=== PATIENT | male | born 1975 | race Hispanic/Latino ===

== ENCOUNTER 2019-09-05 02:28 | Emergency (ER) | payer OTHER ==
[2019-09-05] MEDS ORDERED: Lidocaine 1% w/Epinephrine 1:100K 20 ML VIAL ONE (03:00)
[2019-09-05] MEDS ORDERED: Acetaminophen 500 MG TAB ONE (03:00)
--- NOTE | 2019-09-05 07:35 | CT ---
PRELIMINARY REPORT/[facility]/EMERGENCY AFTER HOURS PROCEDURE: EXAM: CT Head Without Intravenous Contrast. CLINICAL HISTORY: NO PRIOR...ER 2...FALL FROM TOP BUNK, DENIES LOC, DIZZINESS, VISUAL CHANGES TECHNIQUE: Axial computed tomography images of the head/brain without intravenous contrast. COMPARISON: None provided. FINDINGS: BRAIN: No acute intraparenchymal hemorrhage. No mass lesion. No CT evidence for acute territorial inf arct. No midline shift or extra-axial collection. VENTRICLES: No hydrocephalus. ORBITS: The orbits are unremarkable. SINUSES AND MASTOIDS: The paranasal sinuses and mastoid air cells are clear. SOFT TISSUES: There is some mild soft tissue edema in the right supra orbital region. BONES: No acute skull fracture. IMPRESSION: There is some mild soft tissue edema in the right supra orbital region. No acute intracranial abnormality. ELECTRONICALLY SIGNED BY: Patricio Pederson MD Sep 05, 2019 3:04:01 AM PLE[employer] This report is intended for review by the ordering physician only, in accordance of law. If you recei ve this report in error, please call [facility] at [phone]. FINAL REPORT EMERGENCY AFTER HOURS CT BRAIN WITHOUT CONTRAST: FINDINGS/IMPRESSION: I agree with the findings and impression given in the preliminary report per [facility] physici an. No evidence of acute intracranial abnormality.
--- NOTE | 2019-09-05 07:36 | CT ---
PRELIMINARY REPORT/[facility]/EMERGENCY AFTER HOURS PROCEDURE: EXAM: CT Cervical Spine Without Intravenous Contrast. CLINICAL HISTORY: NO PRIOR...ER 2...FALL FROM TOP BUNK, DENIES LOC, DIZZINESS, VISUAL CHANGES TECHNIQUE: Axial computed tomography images of the cervical spine without intravenous contrast. Sagittal and cor onal reformations performed. COMPARISON: None provided. FINDINGS: BONES: No acute fracture or focal osseous lesion. Bony alignment is anatomic. DISCS / DEGENERATIVE CHANGES: No significant disc or facet degeneration. No significant central canal or neural foraminal stenosis. SOFT TISSUES: No prevertebral soft tissue swelling. No apical pneumothorax. IMPRESSION: No acute cervical spine abnormality. ELECTRONICALLY SIGNED BY: Patricio Pederson MD Sep 05, 2019 3:07:23 AM [employer] This report is intended for review by the ordering physician only, in accordance of law. If you recei ve this report in error, please call [facility] at [phone]. FINAL REPORT EMERGENCY AFTER HOURS CT CERVICAL SPINE WITHOUT CONTRAST: FINDINGS/IMPRESSION: I agree with the findings and impression given in the preliminary report per [facility] physici an. No evidence of acute osseous abnormality of the cervical spine.
== END 2019-09-05 03:28 ==
LOC: ERS 02:28
DX: S01.111A Laceration without foreign body of right eyelid and periocular area, initial encounter (principal); W17.89XA Other fall from one level to another, initial encounter
CPT/HCPCS: 12011; 70450; 72125